=== PATIENT | female | born 1975 | race Caucasian/White ===

== ENCOUNTER 2017-07-06 05:30 | Day surgery (SDC) | payer MEDICAID ==
[2017-07-03 16:18] LABS: BASOPHILS # (AUTO) 0.1 X10'3 (0-0.2); BASOPHILS % (AUTO) 0.6 % (0-1); EOSINOPHILS # (AUTO) 0.2 X10'3 (0-0.9); LYMPHOCYTES # (AUTO) 2.4 X10'3 (1.1-4.8); LYMPHOCYTES % (AUTO) 29.6 % (21-51); MEAN CORPUSCULAR HEMOGLOBIN 31.5 PG (27.0-31.0); MEAN CORPUSCULAR HGB CONC 35.1 % (33.0-36.5); MEAN CORPUSCULAR VOLUME 89.8 FL (78-98); MEAN PLATELET VOLUME 7.1 FL (7.4-10.4); MONOCYTES # (AUTO) 0.7 X10'3 (0-0.9); MONOCYTES % (AUTO) 8.4 % (2-12); NEUTROPHILS # (AUTO) 4.7 X10'3 (1.8-7.7); NEUTROPHILS % (AUTO) 59.4 % (42-75); PRE OP HEMATOCRIT 42.5 % (35.0-45.0); PRE OP HEMOGLOBIN 14.9 g/dL (12.0-16.0); PRE OP PLATELET COUNT 506 X10'3 (140-440); RED BLOOD COUNT 4.73 X10'6 (4.20-5.60); RED CELL DISTRIBUTION WIDTH 13.2 % (11.5-14.5)
[2017-07-03 16:32] LABS: ALBUMIN 3.8 G/DL (3.4-5.0); ALKALINE PHOSPHATASE 79 IU/L (46-116); BLOOD UREA NITROGEN 12 MG/DL (7-18); BUN/CREATININE RATIO 13.2 (6.6-38.0); CALCIUM 8.8 MG/DL (8.5-10.1); CHLORIDE 104 MMOL/L (99-107); CREATININE 0.91 MG/DL (0.40-0.90); PRE OP ALT 44 U/L (30-65); PRE OP ANION GAP 9 (8-16); PRE OP AST 26 U/L (10-37); PRE OP BILIRUB, TOTAL 0.2 MG/DL (0.0-1.0); PRE OP GLUCOSE 103 MG/DL (70-104); PRE OP POTASSIUM 3.6 MMOL/L (3.4-5.1); PRE OP SODIUM 141 MMOL/L (135-145); TOTAL CARBON DIOXIDE 28.4 MMOL/L (24-32); TOTAL PROTEIN 7.5 G/DL (6.4-8.2); eGFR 69 ML/MIN
[2017-07-03 16:54] LABS: HCG SERUM QL NEGATIVE
[2017-07-06] VITALS (33 sets, daily range): BP systolic 90–127; BP diastolic 49–82
[~2017-07-06] VITALS: Ht 157.5 cm; Wt 88.2 kg
[~2017-07-06 05:30] MED LIST: BUPR-83 PO; DOCUMENT DATE & TIME OF BETA-BLOCKER PO ONE; LAMO100T89 PO; LEVO75TA PO; METF500T7 PO; PROP20TA6 PO; TRAZ-143 PO; ceFOXitin 2 GM ADDvantage bag 100 ML IV ONE; famotidine 20mg tablet PO ONE; ringers solution, lacted 1,000 ML IV SCH
[2017-07-06] MEDS ORDERED: LIDOcaine 1% (10mg/ml) 2ml vial ONE (05:43)
[2017-07-06] MEDS ORDERED: epiNEPHrine 1 mg/ml inj ONE (06:47)
[2017-07-06] MEDS ORDERED: BUPIVAcaine/PF 2.5 mg/ml (0.25%) 30ml vial ONE (06:47)
[2017-07-06] MEDS ORDERED: LIDOcaine 1% 30ml preserv. free vial ONE (06:47)
[2017-07-06] MEDS ORDERED: vasoPRESSIN 20 units/ml inj. ONE (06:50)
[2017-07-06] MEDS ORDERED: BUPIVAcaine 0.5% inj/PF 30 ml vial ONE (07:04)
[2017-07-06] MEDS ORDERED: midazolam 2 mg/2 ml injection IV ONE (07:08)
[2017-07-06] MEDS ORDERED: ringers solution, lacted 1,000 ML IV SCH (07:14)
[2017-07-06] MEDS ORDERED: MORPHINE 2MG in 2ml NS syringe IV PRN (07:15)
[2017-07-06] MEDS ORDERED: hydrALAZINE 20mg/ml inj. IV PRN (07:15)
[2017-07-06] MEDS ORDERED: labetalol 5mg/ml 20ml inj. IV PRN (07:15)
[2017-07-06] MEDS ORDERED: fentaNYL/PF 50MCG/1 ML 2ML syringe IV PRN (07:15)
[2017-07-06] MEDS ORDERED: ondansetron/PF 4mg/2ml inj IV PRN ×2 (07:15→10:00)
[2017-07-06] MEDS ORDERED: midazolam 2 mg/2 ml injection ONE (07:19)
[2017-07-06] MEDS ORDERED: fentaNYL /PF 50mcg/ml 5ml ampule ONE (07:19)
[2017-07-06] MEDS ORDERED: neostigmine methylsulfate 1 MG/ML 10ml vial ONE (07:21)
[2017-07-06] MEDS ORDERED: rocuronium 10mg/ml inj IV ONE ×2 (07:21→08:56)
[2017-07-06] MEDS ORDERED: glycopyrrolate 0.2mg/ml inj ONE (07:21)
[2017-07-06] MEDS ORDERED: ondansetron/PF 4mg/2ml inj ONE (07:21)
[2017-07-06] MEDS ORDERED: dexamethasone sod phosphate 4mg/ml inj. ONE (07:22)
[2017-07-06] MEDS ORDERED: LIDOcaine 2% (20mg/ml) 5ml vial ONE (07:22)
[2017-07-06] MEDS ORDERED: propofol inj 20 ML IV ONE (07:22)
[2017-07-06] MEDS ORDERED: sevoflurane 250ml liquid IH ONE (07:44)
[2017-07-06] MEDS ORDERED: fluoroscein sod 10% (100mg/ml) 5ml vial ONE (09:25)
[2017-07-06] MEDS: ringers solution, lacted 1,000 ML IV SCH ×2 (09:58→17:58)
[2017-07-06] MEDS ORDERED: HYDROcodone/acetaminophen 5mg/325mg tablet PO PRN (10:00)
[2017-07-06] MEDS ORDERED: CADD PCA waste documentation MC PRN (10:00)
[2017-07-06] MEDS ORDERED: metoclopramide 5 mg/ml inj IV PRN (10:00)
[2017-07-06] MEDS ORDERED: normal saline 500ml IV soln 500 ML IV PRN (10:00)
[2017-07-06] MEDS ORDERED: LORazepam 2 mg/ml vial IV PRN (10:00)
[2017-07-06] MEDS ORDERED: diphenhydrAMINE 50 mg/ml inj IV PRN (10:00)
[2017-07-06] MEDS ORDERED: naloxone 0.4 mg/ml inj IV PRN (10:00)
[2017-07-06] MEDS ORDERED: traZODone 50mg tablet PO PRN (10:05)
[2017-07-06] MEDS: fentaNYL/PF 50MCG/1 ML 2ML syringe IV PRN ×2 (10:41→12:00)
[2017-07-06] MEDS: morphine/NS 5 mg/ml CADD 50 ML IV SCH ×7 (11:39→23:00)
[2017-07-06] MEDS: ketorolac trometh. 30mg/ml inj. IV PRN (14:27)
[2017-07-06] MEDS: simethicone 80mg chew tab PO SCH ×2 (15:41→17:48)
[2017-07-06] MEDS: ferrous sulfate 325mg tablet PO SCH (17:48)
[2017-07-06] MEDS: propranolol 10mg tablet PO SCH (20:00)
[2017-07-06] MEDS: docusate sod 100mg capsule PO SCH (20:09)
[2017-07-06] MEDS: metFORMIN 500mg tablet PO SCH (20:11)
[2017-07-06] MEDS ORDERED: lamoTRIgine 25mg tablet PO SCH (21:00)
[2017-07-07] MEDS: morphine/NS 5 mg/ml CADD 50 ML IV SCH ×4 (01:00→07:00)
[2017-07-07] MEDS: ringers solution, lacted 1,000 ML IV SCH ×2 (01:58→09:58)
[2017-07-07 06:19] LABS: BASOPHILS % (AUTO) 0.3 % (0-1); EOSINOPHILS # (AUTO) 0.2 X10'3 (0-0.9); EOSINOPHILS % (AUTO) 1.5 % (0-6); HEMATOCRIT 35.6 % (35.0-45.0); HEMOGLOBIN 12.3 g/dl (12.0-16.0); LYMPHOCYTES # (AUTO) 2.1 X10'3 (1.1-4.8); LYMPHOCYTES % (AUTO) 15.4 % (21-51); MEAN CORPUSCULAR HEMOGLOBIN 31.5 PG (27.0-31.0); MEAN CORPUSCULAR HGB CONC 34.5 % (33.0-36.5); MEAN CORPUSCULAR VOLUME 91.3 FL (78-98); MEAN PLATELET VOLUME 7.6 FL (7.4-10.4); MONOCYTES # (AUTO) 1.1 X10'3 (0-0.9); MONOCYTES % (AUTO) 8.3 % (2-12); NEUTROPHILS # (AUTO) 10.2 X10'3 (1.8-7.7); NEUTROPHILS % (AUTO) 74.5 % (42-75); PLATELET COUNT 368 X10'3 (140-440); RED CELL DISTRIBUTION WIDTH 13.3 % (11.5-14.5); WHITE BLOOD COUNT 13.7 X10'3 (4.5-11.0)
[2017-07-07 06:31] LABS: ANION GAP 6 (8-16); BLOOD UREA NITROGEN 11 MG/DL (7-18); BUN/CREATININE RATIO 11.2 (6.6-38.0); CALCIUM 8.3 MG/DL (8.5-10.1); CHLORIDE 106 MMOL/L (99-107); CREATININE 0.98 MG/DL (0.40-0.90); GLUCOSE 106 MG/DL (70-104); POTASSIUM 4.3 MMOL/L (3.5-5.1); SODIUM 141 MMOL/L (135-145); TOTAL CARBON DIOXIDE 29.4 MMOL/L (24-32); eGFR 63 ML/MIN
[2017-07-07 07:00] VITALS: BP 89/46
[2017-07-07] MEDS ORDERED: levoTHYROXINE 75mcg tablet PO SCH (08:00)
[2017-07-07] MEDS ORDERED: buPROPion 100mg tablet PO SCH (08:00)
[2017-07-07] MEDS: propranolol 10mg tablet PO SCH (08:00)
[2017-07-07] MEDS: docusate sod 100mg capsule PO SCH (08:36)
[2017-07-07] MEDS: simethicone 80mg chew tab PO SCH ×2 (08:36→13:29)
[2017-07-07] MEDS: metFORMIN 500mg tablet PO SCH (08:37)
[2017-07-07] MEDS: ferrous sulfate 325mg tablet PO SCH (08:37)
[2017-07-07] MEDS: ketorolac trometh. 30mg/ml inj. IV PRN (11:01)
[2017-07-07 11:30] VITALS: BP 80/39
[2017-07-07 15:00] VITALS: BP 97/54
== END 2017-07-07 16:35 | disposition home or self-care (01) ==
LOC: PAS 05:30 → SUR 3N 09:58 → PAS 07-07 16:35
PROVIDERS: ATTEND Obstetrics & Gynecology
DX: D25.2 Subserosal leiomyoma of uterus (principal); N83.8 Other noninflammatory disorders of ovary, fallopian tube and broad ligament; F41.9 Anxiety disorder, unspecified; F32.9 Major depressive disorder, single episode, unspecified; E66.9 Obesity, unspecified; E03.9 Hypothyroidism, unspecified; E28.2 Polycystic ovarian syndrome; Z72.89 Other problems related to lifestyle; Z79.1 Long term (current) use of non-steroidal anti-inflammatories (NSAID); Z90.49 Acquired absence of other specified parts of digestive tract; Z79.84 Long term (current) use of oral hypoglycemic drugs; Z68.35 Body mass index [BMI] 35.0-35.9, adult; Z98.890 Other specified postprocedural states; Z79.899 Other long term (current) drug therapy; Z88.8 Allergy status to other drugs, medicaments and biological substances
CPT/HCPCS: 36415; 58552; 80048; 80053; 82948; 84703; 85025; 86885; 86900; 86901; A4355; A6449; C1758; J0171; J0694; J1100; J1885; J2001; J2250; J2270; J2405; J2704; J2710; J3010; J3490; J7030; J7120; A6250; A7000

== ENCOUNTER 2022-02-17 14:26 | Emergency (ER) | payer BC, MEDICAID ==
[~2022-02-17] VITALS: Ht 157.5 cm; Wt 89.0 kg
[~2022-02-17 14:26] MED LIST changes: +BUPR-114 PO; -BUPR-83 PO; -DOCUMENT DATE & TIME OF BETA-BLOCKER PO ONE; +LAMO100T PO; -LAMO100T89 PO; +METF-900 PO; -METF500T7 PO; -TRAZ-143 PO; +TRAZ-251 PO; -ceFOXitin 2 GM ADDvantage bag 100 ML IV ONE; -famotidine 20mg tablet PO ONE; -ringers solution, lacted 1,000 ML IV SCH
[2022-02-17 14:47] LABS: BASOPHILS # (AUTO) 0.1 X10'3 (0-0.2); BASOPHILS % (AUTO) 1.1 % (0-1); EOSINOPHILS # (AUTO) 0.1 X10'3 (0-0.9); HEMATOCRIT 43.7 % (35.0-45.0); HEMOGLOBIN 15.3 g/dl (12.0-16.0); LYMPHOCYTES # (AUTO) 1.9 X10'3 (1.1-4.8); LYMPHOCYTES % (AUTO) 24.1 % (21-51); MEAN CORPUSCULAR HEMOGLOBIN 33.8 PG (27.0-31.0); MEAN CORPUSCULAR HGB CONC 34.9 g/dL (33.0-36.5); MONOCYTES # (AUTO) 0.5 X10'3 (0-0.9); MONOCYTES % (AUTO) 6.6 % (2-12); NEUTROPHILS # (AUTO) 5.3 X10'3 (1.8-7.7); NEUTROPHILS % (AUTO) 67.2 % (42-75); PLATELET COUNT 376 X10'3 (140-440); RED BLOOD COUNT 4.51 X10'6 (4.20-5.60); RED CELL DISTRIBUTION WIDTH 12.6 % (11.5-14.5); WHITE BLOOD COUNT 7.9 X10'3 (4.5-11.0)
[2022-02-17 14:59] LABS: ALANINE AMINOTRANSFERASE 81 U/L (12-78); ALBUMIN/GLOBULIN RATIO 1.1 (1.1-1.5); ALKALINE PHOSPHATASE 98 IU/L (46-116); ANION GAP 11 (8-16); BILIRUBIN,TOTAL 0.3 MG/DL (0.1-1.0); BLOOD UREA NITROGEN 18 MG/DL (7-18); CALCIUM 9.2 MG/DL (8.5-10.1); CHLORIDE 101 MMOL/L (99-107); GLUCOSE 123 MG/DL (70-104); SODIUM 139 MMOL/L (135-145); TOTAL PROTEIN 7.8 G/DL (6.4-8.2); eGFR 68 ML/MIN
[2022-02-17 15:03] LABS: MAGNESIUM 1.7 MG/DL (1.5-2.4)
[2022-02-17 15:05] LABS: ASPARTATE AMINO TRANSFERASE 50 U/L (10-37); POTASSIUM 4.2 MMOL/L (3.5-5.1)
[2022-02-17 15:26] VITALS: BP 144/91
== END 2022-02-17 15:34 | disposition home or self-care (01) ==
LOC: ER 14:26
DX: R07.89 Other chest pain (principal); R06.02 Shortness of breath; E11.9 Type 2 diabetes mellitus without complications; F32.A Depression, unspecified; J45.909 Unspecified asthma, uncomplicated; K21.9 Gastro-esophageal reflux disease without esophagitis; Z88.5 Allergy status to narcotic agent; Z79.899 Other long term (current) drug therapy
CPT/HCPCS: 36415; 71045; 80053; 83735; 84484; 85025; 93005; 99285